=== PATIENT | female | born 1990 | race Caucasian/White ===

== ENCOUNTER 2021-04-26 14:05 | Outpatient (CLI) | payer OTHER | END 2021-04-26 14:18 | disposition home or self-care (01) | LOC: RAD 14:05 | PROVIDERS: ATTEND Specialist | DX: R07.89 Other chest pain (principal); J45.998 Other asthma ==

== ENCOUNTER 2023-08-14 07:45 | Outpatient (CLI) | payer OTHER | END 2023-08-14 07:48 | disposition home or self-care (01) | LOC: NUCLEAR 07:45 | PROVIDERS: ATTEND Internal Medicine Endocrinology, Diabetes & Metabolism | DX: E05.90 Thyrotoxicosis, unspecified without thyrotoxic crisis or storm (principal) ==

== ENCOUNTER 2023-08-15 08:11 | Outpatient (CLI) | payer OTHER | END 2023-08-17 08:13 | disposition home or self-care (01) | LOC: NUCLEAR 08:11 | PROVIDERS: ATTEND Internal Medicine Endocrinology, Diabetes & Metabolism | DX: E05.90 Thyrotoxicosis, unspecified without thyrotoxic crisis or storm (principal) ==

== ENCOUNTER 2024-07-15 17:18 | Outpatient (CLI) | payer OTHER | END 2024-07-15 18:28 | disposition home or self-care (01) | LOC: NST 17:18 | PROVIDERS: ATTEND Obstetrics & Gynecology Maternal & Fetal Medicine | DX: Z34.83 Encounter for supervision of other normal pregnancy, third trimester (principal) ==

== ENCOUNTER 2024-07-31 12:51 | Outpatient (CLI) | payer OTHER | END 2024-07-31 13:35 | disposition home or self-care (01) | LOC: NST 12:51 | PROVIDERS: ATTEND Obstetrics & Gynecology | DX: Z34.83 Encounter for supervision of other normal pregnancy, third trimester (principal) ==

== ENCOUNTER 2024-10-02 09:48 | Inpatient (IN) | payer OTHER ==
[~2024-10-02] VITALS: Ht 152.4 cm; Wt 64.4 kg
[2024-10-02 09:01] VITALS: BP 129/74
[2024-10-02] MEDS ORDERED: PRENATA CHEWAB1 EACH PO (10:19)
[2024-10-02] MEDS ORDERED: RINGERS SOLUTION,LACTATED 1,000 ML IV SCH (10:30)
[2024-10-02] MEDS ORDERED: OXYTOCIN 20 UNITS/500ML RL PIGGYBAG IV ONE (10:55)
[2024-10-02] MEDS ORDERED: OXYTOCIN 500 ML IV ONE (11:15)
[2024-10-02] MEDS ORDERED: MORPHINE SULFATE 4 MG/ML VIAL IV PRN (11:15)
[2024-10-02 11:31] LABS: BASO % 0.5 % (0.1-1.2); EOS # 0.06 (0.04-0.54); HEMATOCRIT 38.8 % (34.1-44.9); HEMOGLOBIN 13.5 g/dL (11.2-15.7); LYMPH # 1.57 (1.18-3.74); MEAN CORPUSCULAR HEMOGLOBIN 31.2 pg (25.6-32.2); MONO # 0.74 (0.24-0.82); NEUT # 3.63 (1.56-6.13); PLATELET COUNT 169 K/uL (163-369); RED BLOOD COUNT 4.33 M/uL (3.93-5.22); RED CELL DISTRIBUTION WIDTH 12.7 % (11.6-14.4)
[2024-10-02 11:41] LABS: MONO % 12.2 % (4.7-12.5)
[2024-10-02 12:02] LABS: INR < 0.93; PARTIAL THROMBOPLASTIN TIME 26.6 SECONDS (22.0-34.0)
[2024-10-02 12:47] LABS: ALBUMIN 3.1 gm/dL (3.4-5.0); BILIRUBIN TOTAL 0.47 mg/dL (0.3-1.2); CREATININE SERUM 0.62 mg/dL (0.55-1.02); GFR 110.85; GLOBULINA 3.8 G/DL (2.4-3.5); POTASSIUM 4.15 mEq/L (3.5-5.1); TOTAL PROTEIN 6.9 gm/dL (6.4-8.2)
[2024-10-02 13:11] VITALS: BP 125/74
[2024-10-02 15:14] VITALS: BP 119/49
[2024-10-02] MEDS ORDERED: CHLORHEXIDINE GLUCONATE 120 ML BOTTLE TOP ONE (15:43)
[2024-10-02] MEDS ORDERED: ERYTHROMYCIN BASE OPHT 1GM EACH TUBE OP ONE (15:43)
[2024-10-02] MEDS ORDERED: LIDOCAINE HCL 1% 10ML VIAL ONE (15:43)
[2024-10-02] MEDS ORDERED: OXYTOCIN 20 UNITS/1000ML RL PIGGYBAG IV ONE (15:43)
[2024-10-02] MEDS ORDERED: CHLORHEXIDINE GLUCONATE 120 ML BOTTLE TOP SCH (18:30)
[2024-10-02] MEDS ORDERED: OXYTOCIN 1,000 ML IV SCH (18:30)
[2024-10-02] MEDS ORDERED: IBUprofen 600 MG TABLET PO PRN (18:45)
[2024-10-02 19:30] VITALS: BP 111/74
[2024-10-02] MEDS ORDERED: AMPICILLIN SODIUM 2,000 MG VIAL IV ONE (20:00)
[2024-10-03 00:59] VITALS: BP 124/81
[2024-10-03 05:00] VITALS: BP 109/72
[2024-10-03 09:06] VITALS: BP 112/68
[2024-10-03 12:28] VITALS: BP 113/68; O2SAT 100
[2024-10-03 16:00] VITALS: BP 114/72
[2024-10-04 00:11] VITALS: BP 105/68
[2024-10-04 04:30] VITALS: BP 106/66
[2024-10-04 08:00] VITALS: BP 105/68
== END 2024-10-04 14:25 | disposition home or self-care (01) | DRG 807 ==
LOC: LDR 09:48 → OB/GYN 18:32
PROVIDERS: ADMIT Obstetrics & Gynecology Gynecology; ATTEND Obstetrics & Gynecology Gynecology
PROC: 10E0XZZ Delivery of Products of Conception, External Approach (ICD-10-PCS; principal; 2024-10-02)
PROC: 0W8NXZZ Division of Female Perineum, External Approach (ICD-10-PCS; 2024-10-02)
PROC: 4A1HXCZ Monitoring of Products of Conception, Cardiac Rate, External Approach (ICD-10-PCS; 2024-10-02)
DX: O80 Encounter for full-term uncomplicated delivery (principal); Z37.0 Single live birth; Z3A.39 39 weeks gestation of pregnancy